=== PATIENT | female | born 1975 | race Caucasian/White ===

== ENCOUNTER 2017-05-16 21:12 | Emergency (ER) | payer OTHER, SELFPAY ==
[2017-05-16 21:13] VITALS: BP 161/107; PULSE 87; RESP 20; TEMP 37.5; O2SAT 93; BMI 46.2
[2017-05-16] MEDS: Famotidine 20 MG Tablet PO (21:43)
[2017-05-16] MEDS: Triamcinolone Acetonide 40 MG/ML Vial IM (21:43)
--- NOTE | 2017-05-16 22:02 | EKG12_ITS ---
Test Reason : ALLERGY Blood Pressure : / mmHG Vent. Rate : 066 BPM Atrial Rate : 066 BPM P-R Int : 170 ms QRS Dur : 088 ms QT Int : 434 ms P-R-T Axes : 051 027 029 degrees QTc Int : 454 ms Sinus rhythm with occasional Premature ventricular complexes Otherwise normal ECG Confirmed by REYNA PINO, ISRRAEL ([id number]), web editor MARILY KWAN ([id number]) on 05/21/2017 2:22:12 PM Referred By: MICHAEL Confirmed By:ISRRAEL ORELLANA MD
[2017-05-16 22:12] VITALS: PULSE 71; RESP 18; O2SAT 98
--- NOTE | 2017-05-16 22:18 | RAD_ITS ---
STUDY: X-RAY CHEST REASON FOR EXAM: Female, 41 years old. Allergic reaction. TECHNIQUE: 2 views COMPARISON: Prior chest radiograph of June 04, 2016 FINDINGS: The lungs are clear and expanded. There is no demonstrated pleural abnormality. Normal size heart. Normal mediastinum and martin. Normal visualized pulmonary arteries. Normal visualized aortic arch and descending thoracic aorta. Normal visualized thoracic spine. Normal visualized ribs, clavicles, and shoulders. There is no demonstrated abnormality of the visualized soft tissue structures of the upper abdomen. RAD/Chest PA and Lateral IMPRESSION: Normal x-ray examination of the chest. Electronically Signed: Donna Loera MD at 22:34 EST , Service support ,
[2017-05-16 23:00] VITALS: PULSE 71; RESP 18; O2SAT 97
--- NOTE | 2017-05-16 23:27 | ED.DCSUM_ITS ---
- ER Visit Summary Date of Service: 05/16/17 Chief Complaint: Allergic reaction History of Present Illness: The patient is a 41 F who presents with with an allergic reaction. 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 She ate rice and soy sauce at home. 30 minutes later she developed hives and flushing and felt short of breath and like her chest was heavy and began wheezing. This is similar to her prior allergic reactions. She initially took a tablet of a combination acetaminophen diphenhydramine tablet not realizing it was not Benadryl alone. She then took 2 additional Benadryl. She states her symptoms currently are improving. She has no other medical problems or recent illness. Physical Examination: Afebrile vitals are unremarkable Moist mucous membranes Heart regular rate and rhythm Lungs are clear Abdomen soft Patient is flushed No respiratory distress or stridor Test Results: EKG shows sinus rhythm at a rate of 66 and chest x-ray is normal. Emergency Department Course and Treatment: Difficulty initially establishing an IV. Patient was hemodynamically stable so was given oral Pepcid and intramuscular Kenalog. She began to complain of some chest tightness and palpitations so an EKG and chest x-ray were ordered which are unremarkable. On reevaluation the patient's symptoms have resolved and she is resting comfortably. She will be discharged. She understands to return for new or worsening symptoms. Treatment Plan: [] Disposition: Discharge Impression: Allergic reaction This note was generated with [facility] dictation software. It may contain incorrect words, spelling, and punctuation that were not noted in review of the chart prior to signing ED Disposition - Plan for ED Patient: Chief Complaint: Allergic Reaction Referrals: Michael Owens MD [Primary Care Provider] -
--- NOTE | 2017-05-16 23:27 | ED.DEP ---
ED Disposition - Plan for ED Patient: Chief Complaint: Allergic Reaction Instructions: ED Allergic Reaction General Other Referrals: Michael Owens MD [Primary Care Provider] -
[2017-05-16 23:33] VITALS: PULSE 81; RESP 20; O2SAT 95
== END 2017-05-16 23:40 | disposition home or self-care (01) ==
PROVIDERS: Emergency Provider Emergency Medicine; Family Provider Family Medicine; PCP Family Medicine
DX: T78.40XA Allergy, unspecified, initial encounter (principal); X58.XXXA Exposure to other specified factors, initial encounter; R07.89 Other chest pain; R00.2 Palpitations; R06.02 Shortness of breath
CPT/HCPCS: 71046; 93005; 96372; 99283; A4216